=== PATIENT | female | born 1995 | race Caucasian/White ===

== ENCOUNTER → 2018-07-19 | Outpatient (CLI) | payer BC, OTHER | LOC: OD 13:05 | PROVIDERS: ATTEND Obstetrics & Gynecology | DX: O03.9 Complete or unspecified spontaneous abortion without complication (principal) | CPT/HCPCS: 36415; 84702 ==

== ENCOUNTER 2018-09-10 10:32 | Emergency (ER) | payer BC, OTHER ==
[2018-09-10] MEDS ORDERED: METOCLOPRAMIDE HCL INJ/PF 10 MG/2 ML SDV IV ONE (11:14)
[2018-09-10] MEDS ORDERED: NORMAL SALINE 1000 ML 1,000 ML IV ONE (11:14)
[2018-09-10] MEDS ORDERED: DIPHENHYDRAMINE HCL 50 MG/ML VIAL IV ONE (11:14)
--- NOTE | 2018-09-10 11:25 | ER Document Report ---
ED Headache - General Chief Complaint: Headache Stated Complaint: HEADACHE Time Seen by Provider: 09/10/18 11:13 TRAVEL OUTSIDE OF THE [place] IN LAST 30 DAYS: No - HPI Notes: Patient is a 23-year-old female that presents to the emergency department for chief complaint of headache. Patient reports headache that started yesterday. It was gradual in onset and has become more severe. She has photophobia and phonophobia. She took Tylenol yesterday with minimal relief. She denies history of migraines in the past but does state that she gets headaches not infrequently. She has never had a headache that has lasted this long. She is currently at 13 weeks gestational age. She is with a history of 1 delivery and 1 miscarriage. Patient denies any issues with her current . She denies any lower abdominal pain, cramping, vaginal discharge or vaginal bleeding. She does state that she gets frequent urinary tract infections and has been having some dysuria. She states she has been told to see a urologist but has not had a chance to do so yet. She has been on antibiotics for UTI in the last month. She denies any fevers or chills. She has some nausea which is unchanged from her baseline with this . She denies any vomiting or diarrhea. Patient denies any numbness, weakness, vision changes, fever, neck pain and head injury Past Medical History: Negative Past Surgical History: x1, wisdom teeth removal, tonsillectomy Social History: Denies drugs alcohol and tobacco Family History: Reviewed and noncontributory for presenting illness Allergies: Reviewed, see documented allergy list. REVIEW OF SYSTEMS: CONSTITUTIONAL : No fever No chills No diaphoresis No recent illness EENT: No vision changes No congestion No sore throat CARDIOVASCULAR: No chest pain No palpitations RESPIRATORY: No shortness of breath No cough No difficulty breathing GASTROINTESTINAL: No abdominal pain nausea No vomiting No diarrhea GENITOURINARY: dysuria No hematuria No difficulty urinating MUSCULOSKELETAL: No back pain No leg pain No arm pain SKIN: No rashes No lesions LYMPHATIC: No swollen, enlarged glands. NEUROLOGICAL: No lightheadedness headache No weakness No paresthesias PSYCHIATRIC: No anxiety No depression PHYSICAL EXAMINATION: Vital signs reviewed, nursing noted reviewed. GENERAL: Well-appearing, obese and in no acute distress. HEAD: Atraumatic, normocephalic. EYES: Eyes appear normal, extraocular movements intact, sclera anicteric, conjunctiva are normal. ENT: nares patent, oropharynx clear without exudates. Moist mucous membranes. NECK: Normal range of motion, supple without lymphadenopathy LUNGS: Breath sounds clear to auscultation bilaterally and equal. No wheezes rales or rhonchi. HEART: Regular rate and rhythm without murmurs ABDOMEN: Soft, nontender, normoactive bowel sounds. No rebound, guarding, or rigidity. No masses appreciated. EXTREMITIES: Nontender, good range of motion, no pitting or edema. NEUROLOGICAL: No focal neurological deficits. Moves all extremities spontaneously Motor and sensory grossly intact on exam. PSYCH: Normal mood, normal affect. SKIN: Warm, Dry, normal turgor, no rashes or lesions noted on exposed skin - Related Data Allergies/Adverse Reactions: Cephalosporins Allergy (Verified 09/10/18 10:34) Past Medical History - Social History Smoking Status: Never Smoker Family History: Reviewed & Not Pertinent Physical Exam - Vital signs Vitals: Temp Pulse Resp BP Pulse Ox 99.5 F 94 16 132/85 H 97 09/10/18 10:35 09/10/18 10:35 09/10/18 10:35 09/10/18 10:35 09/10/18 10:35 Course - Re-evaluation Re-evalutation: 09/10/18 11:24 Vitals reviewed. Nursing notes reviewed. Patient has no focal neurologic deficits or fever. Meningitis is not suspected. She is currently and we discussed the risks of radiation with CT scan. Her symptoms are not consistent with mass lesion or intracranial hemorrhage and CT will be deferred currently. Patient will be given IV fluids, Reglan and Benadryl for symptomatic management. She does report dysuria so urinalysis will be obtained to evaluate for infection. 09/10/18 12:05 Patient is now refusing IV and requesting oral medications. She was given a large glass of water to drink and given oral Reglan, Benadryl, and Tylenol. 09/10/18 12:34 UA is negative for infection or proteinuria. Patient's blood pressure improved without intervention. She states she is feeling much better. She was counseled on staying well-hydrated and continue to take Tylenol at home as needed for headaches. She was instructed to follow closely with [facility] for monitoring of her blood pressure. She will return for any new or worsening symptoms. Laboratory 09/10/18 11:40 Urine Color YELLOW Urine Appearance SLIGHTLY-CLOUDY Urine pH 5.0 Ur Specific [place] 1.019 Urine Protein NEGATIVE Urine Glucose (UA) NEGATIVE Urine Ketones TRACE H Urine Blood NEGATIVE Urine Nitrite NEGATIVE Urine Bilirubin NEGATIVE Urine Urobilinogen NEGATIVE Ur Leukocyte Esterase NEGATIVE Urine WBC (Auto) 1 Urine RBC (Auto) 5 Squamous Epi Cells Auto 2 Urine Mucus (Auto) FEW Urine Ascorbic Acid NEGATIVE - Vital Signs Vital signs: Temp Pulse Resp BP Pulse Ox 99.2 F 91 16 126/78 H 97 09/10/18 12:45 09/10/18 12:45 09/10/18 11:12 09/10/18 12:45 09/10/18 10:35 - Laboratory Laboratory results interpreted by me: 09/10/18 11:40 Urine Ketones TRACE H Discharge - Discharge Clinical Impression: Elevated blood pressure reading Cephalgia Qualifiers: Headache type: unspecified Headache chronicity pattern: acute headache Intractability: not intractable Qualified Code(s): R51 - Headache Condition: Stable Disposition: HOME, SELF-CARE Instructions: Headache ([facility]) Additional Instructions: Please return to the emergency department if you have any worsening, or concern of your symptoms. Please return to the emergency department if you develop chest pain, difficulty breathing, severe abdominal pain, or ongoing vomiting. Please follow-up with your primary care physician in 2-3 days and any other recommended physicians. If prescribed, take all medications as directed. If you have any questions or concerns do not hesitate to return the emergency department for evaluation. Forms: Elevated Blood Pressure Referrals: NANCY JENKINS MD [Primary Care Provider] - Follow up as needed [facility] [Provider Group] - Follow up in 3-5 days
[2018-09-10] MEDS ORDERED: METOCLOPRAMIDE HCL 10 MG TABLET PO ONE (11:58)
[2018-09-10] MEDS ORDERED: ACETAMINOPHEN 325 MG TABLET PO ONE (11:58)
[2018-09-10] MEDS ORDERED: DIPHENHYDRAMINE HCL 50 MG CAPSULE PO ONE (11:58)
[2018-09-10 12:23] LABS: APPEARANCE,URINE SLIGHTLY-CLOUDY; BILIRUBIN,URINE NEGATIVE (NEGATIVE); COLOR,URINE YELLOW; GLUCOSE, URINE NEGATIVE (NEGATIVE); KETONES,URINE TRACE mg/dL (NEGATIVE); LEUKOCYTE ESTERASE,URINE NEGATIVE (NEGATIVE); NITRITE,URINE NEGATIVE (NEGATIVE); PROTEIN,URINE NEGATIVE (NEGATIVE); URINE SPECIFIC GRAVITY 1.019; UROBILINOGEN,URINE NEGATIVE mg/dL (<2.0)
[2018-09-10 13:04] VITALS: BP 126/78
== END 2018-09-10 12:51 | disposition home or self-care (01) ==
LOC: ER 10:32
DX: O26.891 Other specified pregnancy related conditions, first trimester (principal); R51 Headache; R03.0 Elevated blood-pressure reading, without diagnosis of hypertension; H53.149 Visual discomfort, unspecified; R30.0 Dysuria; R11.0 Nausea; Z3A.13 13 weeks gestation of pregnancy; Z87.440 Personal history of urinary (tract) infections; Z86.69 Personal history of other diseases of the nervous system and sense organs; Z88.1 Allergy status to other antibiotic agents
CPT/HCPCS: 81001; 87086; 99284

== ENCOUNTER 2018-12-15 13:35 | Emergency (ER) | payer BC, OTHER ==
[2018-12-15 13:42] VITALS: BP 126/75
[2018-12-15] MEDS ORDERED: LIDOCAINE 5% (700 MG) TRANSDERMAL ADH..PATCH TP ONE (14:16)
[2018-12-15] MEDS ORDERED: ACETAMINOPHEN 325 MG TABLET PO ONE (14:16)
--- NOTE | 2018-12-15 14:19 | ER Document Report ---
HPI - HPI Time Seen by Provider: 12/15/18 14:10 Pain Level: 4 Notes: Patient is an otherwise healthy 23-year-old female who is 32 weeks presenting with chief complaint of tailbone pain. Patient denies any trauma to this area. She denies any abdominal pain or cramping. She further denies any dysuria, abnormal vaginal discharge or vaginal bleeding. - REPRODUCTIVE Reproductive: DENIES: : Past Medical History - General Information source: Patient - Social History Smoking Status: Never Smoker Frequency of alcohol use: None Drug Abuse: None Family History: Reviewed & Not Pertinent Patient has suicidal ideation: No Patient has homicidal ideation: No - Medical History Medical History: Negative Endocrine Medical History: Comment Only: Hx Diabetes Mellitus Type 2 - gestational diabetes Renal/ Medical History: Denies: Hx Peritoneal Dialysis Surgical Hx: Negative - Immunizations Immunizations up to date: Yes Vertical Provider Document - CONSTITUTIONAL Notes: PHYSICAL EXAMINATION: GENERAL: Well-appearing, well-nourished and in no acute distress. HEAD: Atraumatic, normocephalic. EYES: Pupils equal round extraocular movements intact, conjunctiva are normal. ENT: Nares patent NECK: Normal range of motion LUNGS: No respiratory distress Musculoskeletal: Normal range of motion, tenderness to palpation over coccyx. No erythema, ecchymosis, induration or evidence of infection. NEUROLOGICAL: Normal speech, normal gait. PSYCH: Normal mood, normal affect. SKIN: Warm, Dry, normal turgor, no rashes or lesions noted. - INFECTION CONTROL TRAVEL OUTSIDE OF THE [place] IN LAST 30 DAYS: No Course - Re-evaluation Re-evalutation: Patient encouraged to take Tylenol and use lidocaine patches. She has a follow- up with her [employer]IE[employer] already scheduled for 4 days from now. Encouraged her to keep this appointment. Encouraged to return to the hospital if she develops abdominal pain, vaginal bleeding or any other symptom that is concerning to her. - Vital Signs Vital signs: Temp Pulse Resp BP Pulse Ox 98.2 F 106 H 20 126/75 H 97 12/15/18 13:40 12/15/18 13:40 12/15/18 13:40 12/15/18 13:40 12/15/18 13:40 Discharge - Discharge Clinical Impression: Pain, coccyx Condition: Stable Disposition: HOME, SELF-CARE Instructions: Low Back Pain ([facility]) Additional Instructions: As discussed please take Tylenol every 4 hours for the pain. Use the Lidoderm patches as directed apply 1 to the area for 12 hours then off for 12 hours. Please follow-up with your primary care provider or your [employer]GRAM[employer] CHIEF as we discussed. Return to the emergency department for any new or worsening symptoms. Please see labor and delivery if you develop abdominal pain, cramping or any abnormal normal vaginal bleeding. Prescriptions: Lidocaine [Lidoderm 5% (700 mg) Transdermal Patch] 1 patch TP DAILY #30 [facility] Referrals: NANCY JENKINS MD [ACTIVE STAFF] - Follow up as needed
== END 2018-12-15 14:23 | disposition home or self-care (01) ==
LOC: ER 13:35
DX: O26.93 Pregnancy related conditions, unspecified, third trimester (principal); M53.3 Sacrococcygeal disorders, not elsewhere classified; Z3A.32 32 weeks gestation of pregnancy
CPT/HCPCS: 99283

== ENCOUNTER 2019-11-09 12:35 | Emergency (ER) | payer BC, OTHER ==
[2019-11-09] MEDS ORDERED: ACETAMINOPHEN 325 MG TABLET PO ONE (14:03)
[2019-11-09] MEDS ORDERED: ONDANSETRON 4 MG TAB.RAPDIS PO ONE (14:03)
--- NOTE | 2019-11-09 14:03 | ER Document Report ---
ED Medical Screen (RME) - General Chief Complaint: Headache >24 hrs old Stated Complaint: HEADACHE, HANDS AND FEET SWELLING Time Seen by Provider: 11/09/19 14:00 Mode of Arrival: Ambulatory Information source: Patient Notes: 24-year-old female presented to ED for complaint of headache and nausea x3 days. She states she took Tylenol this morning at 630. She does have a history of headaches. She has a history of gestational diabetes gestational hypertension with preeclampsia. She also has a history of depression and anxiety. She is 16 weeks 4 para 2. Her HAM PUMPER is in [place]. She states she rarely drinks patient does not have a truck driver with her. I have greeted and performed a rapid initial assessment of this patient. A comprehensive ED assessment and evaluation of the patient, analysis of test results and completion of medical decision making process will be conducted by an additional ED providers. TRAVEL OUTSIDE OF THE [place] IN LAST 30 DAYS: No - Related Data Allergies/Adverse Reactions: No Known Allergies Allergy (Unverified 11/09/19 13:52) Home Medications: lexapro, vistaril Past Medical History - Social History Chew tobacco use (# tins/day): No Frequency of alcohol use: Rare Drug Abuse: None - Past Medical History Cardiac Medical History: Denies: Hx Hypercholesterolemia - gestational htn Endocrine Medical History: Denies: Hx Diabetes Mellitus Type 2 - gestational diabetes Renal/ Medical History: Denies: Hx Peritoneal Dialysis Psychiatric Medical History: Reports: Hx Depression Past Surgical History: Reports: Hx Section - x2 - Immunizations Immunizations up to date: Yes Physical Exam - Vital signs Vitals: Temp Pulse Resp BP Pulse Ox 99.5 F 119 H 20 136/89 H 96 11/09/19 13:19 11/09/19 13:19 11/09/19 13:19 11/09/19 13:19 11/09/19 13:19 Course - Vital Signs Vital signs: Temp Pulse Resp BP Pulse Ox 99.5 F 119 H 20 124/82 96 11/09/19 13:19 11/09/19 13:19 11/09/19 13:19 11/09/19 13:50 11/09/19 13:19
[2019-11-09 14:36] LABS: ABSOLUTE EOSINOPHILS # (AUTO) 0.1 10^3/uL (0.0-0.6); ABSOLUTE LYMPHOCYTES (AUTO) 2.1 10^3/uL (0.5-4.7); ABSOLUTE MONOCYTES (AUTO) 0.7 10^3/uL (0.1-1.4); ABSOLUTE NEUT (AUTO) 7.4 10^3/uL (1.7-8.2); APPEARANCE,URINE CLOUDY; BASOPHILS % (AUTO) 0.3 % (0-2); BILIRUBIN,URINE NEGATIVE (NEGATIVE); EOSINOPHILS % (AUTO) 0.7 % (0-6); GLUCOSE, URINE NEGATIVE (NEGATIVE); HEMATOCRIT 35.2 % (36.0-47.0); HEMOGLOBIN 12.6 g/dL (12.0-15.5); KETONES,URINE 20 mg/dL (NEGATIVE); LYMPHOCYTES % (AUTO) 20.1 % (13-45); MEAN CORPUSCULAR HEMOGLOBIN 28.7 pg (27.0-33.4); MEAN CORPUSCULAR HGB CONC 35.8 g/dL (32.0-36.0); MEAN CORPUSCULAR VOLUME 80 fl (80-97); MONOCYTES % (AUTO) 7.1 % (3-13); PLATELET COUNT 281 10^3/uL (150-450); PROTEIN,URINE 100 mg/dL (NEGATIVE); RED BLOOD COUNT 4.39 10^6/uL (3.72-5.28); RED CELL DISTRIBUTION WIDTH 16.6 % (11.5-14.0); SEGMENTED NEUTROPHILS % (AUTO) 71.8 % (42-78); TOTAL CELLS COUNTED % (AUTO) 100 %; URINE SPECIFIC GRAVITY 1.026; WHITE BLOOD COUNT 10.2 10^3/uL (4.0-10.5)
[2019-11-09 14:38] LABS: COLOR,URINE DARK YELLOW
[2019-11-09 14:41] LABS: BACTERIA,URINE 4+ /HPF
--- NOTE | 2019-11-09 14:43 | ER Document Report ---
ED General - General Chief Complaint: Headache >24 hrs old Stated Complaint: HEADACHE, HANDS AND FEET SWELLING Time Seen by Provider: 11/09/19 14:00 Mode of Arrival: Ambulatory Information source: Patient Notes: 24-year-old female who lives at [place] with her and also 22-month and 8-month-old children. Patient is now 16 weeks gravid miscarriage in March 2018. She has a history of preeclampsia hypertension on her last child 8 months ago. She had a at that time. She has had a diffuse headache for the last 3 days with positive photophobia wearing sunglasses at this time in triage and waiting room. I examined this patient in the triage room #3 with Vianney FRANCO patient denies any sore throat rhinorrhea nuchal rigidity cough cold symptoms. She denies any travel in fact she has to take care of her 2 children at her home and denies any outside activity outside the home for several weeks TRAVEL OUTSIDE OF THE [place] IN LAST 30 DAYS: No - HPI Onset: Yesterday Onset/Duration: Sudden Quality of pain: No pain Severity: Mild Pain Level: 1 Associated symptoms: Nausea, Weakness Exacerbated by: Movement, Other - light Relieved by: Denies Similar symptoms previously: Yes Recently seen / treated by doctor: No - Related Data Allergies/Adverse Reactions: No Known Allergies Allergy (Unverified 11/09/19 13:52) Home Medications: lexapro, vistaril Past Medical History - General Information source: Patient - Social History Smoking Status: Never Smoker Cigarette use (# per day): No Chew tobacco use (# tins/day): No Smoking Education Provided: No Frequency of alcohol use: Rare Drug Abuse: None Family History: Reviewed & Not Pertinent Patient has suicidal ideation: No Patient has homicidal ideation: No - Past Medical History Cardiac Medical History: Denies: Hx Hypercholesterolemia - gestational htn Endocrine Medical History: Denies: Hx Diabetes Mellitus Type 2 - gestational diabetes Renal/ Medical History: Denies: Hx Peritoneal Dialysis Psychiatric Medical History: Reports: Hx Depression Past Surgical History: Reports: Hx Section - x2 - Immunizations Immunizations up to date: Yes Review of Systems - Review of Systems Constitutional: See HPI, Malaise EENT: No symptoms reported Cardiovascular: No symptoms reported Respiratory: No symptoms reported Gastrointestinal: No symptoms reported Genitourinary: No symptoms reported Female Genitourinary: No symptoms reported Musculoskeletal: No symptoms reported Skin: No symptoms reported Hematologic/Lymphatic: No symptoms reported Neurological/Psychological: See HPI, Headaches Physical Exam - Vital signs Vitals: Temp Pulse Resp BP Pulse Ox 99.5 F 119 H 20 136/89 H 96 11/09/19 13:19 11/09/19 13:19 11/09/19 13:19 11/09/19 13:19 11/09/19 13:19 Interpretation: Normal - HEENT Head: Normocephalic Eyes: Normal Conjunctiva: Normal Cornea: Normal Extraocular movements intact: Yes Eyelashes: Normal Pupils: PERRL Mucous membranes: Normal Pharynx: Normal Neck: Normal - Respiratory Respiratory status: No respiratory distress Chest status: Nontender Breath sounds: Normal Chest palpation: Normal - Cardiovascular Rhythm: Tachycardia Heart sounds: Normal auscultation Murmur: No Friction rub: No Sim's crunch: No - Abdominal Inspection: Normal Distension: No distension Bowel sounds: Normal Tenderness: Nontender Organomegaly: No organomegaly - Back Back: Normal - Extremities General upper extremity: Normal inspection General lower extremity: Normal inspection - Neurological Neuro grossly intact: Yes Cognition: Normal Orientation: AAOx4 Edgar Coma Scale Eye Opening: Spontaneous Edgar Coma Scale Verbal: Oriented Speech: Normal Cranial nerves: Normal Cerebellar coordination: Normal Motor strength normal: LUE, RUE, LLE, RLE - Psychological Associated symptoms: Normal affect - Skin Skin Temperature: Warm Skin Moisture: Dry Course - Vital Signs Vital signs: Temp Pulse Resp BP Pulse Ox 99.1 F 91 22 H 126/78 H 98 11/09/19 20:20 11/09/19 20:20 11/09/19 20:20 11/09/19 20:20 11/09/19 20:20 - Laboratory Result Diagrams: 11/09/19 14:05 11/09/19 14:05 Laboratory results interpreted by me: 11/09/19 11/09/19 11/09/19 14:05 14:05 14:05 Hct 35.2 L RDW 16.6 H Sodium 135.9 L BUN 4 L Creatinine 0.35 L Urine Protein 100 H Urine Ketones 20 H Urine Urobilinogen 2.0 H Leukocyte Esterase Rfl LARGE H Critical Care Note - Critical Care Note Total time excluding time spent on procedures (mins): 90 Discharge - Discharge Clinical Impression: Tachycardia Fever Qualifiers: Fever type: unspecified Qualified Code(s): R50.9 - Fever, unspecified Headache Qualifiers: Headache type: unspecified Headache chronicity pattern: acute headache Intractability: not intractable Qualified Code(s): R51 - Headache UTI (urinary tract infection) Qualifiers: Urinary tract infection type: site unspecified Hematuria presence: without hematuria Qualified Code(s): N39.0 - Urinary tract infection, site not specified Condition: Good Disposition: HOME, SELF-CARE Additional Instructions: Follow-up with personal doctor return to ER as needed take medicines as directed encourage fluids Prescriptions: Nitrofurantoin Monohyd/M-Cryst [Macrobid 100 mg Capsule] 100 mg PO BID #14 cap
[2019-11-09 15:01] LABS: ALBUMIN 3.9 g/dL (3.5-5.0); ALKALINE PHOSPHATASE 52 U/L (38-126); ANION GAP 12 (5-19); ASPARTATE AMINO TRANSFERASE 17 U/L (14-36); BILIRUBIN,DIRECT 0.3 mg/dL (0.0-0.4); BILIRUBIN,TOTAL 0.4 mg/dL (0.2-1.3); BLOOD UREA NITROGEN 4 mg/dL (7-20); CALCIUM 9.2 mg/dL (8.4-10.2); CARBON DIOXIDE 22 mmol/L (22-30); CHLORIDE 102 mmol/L (98-107); GLUCOSE 99 mg/dL (75-110); POTASSIUM 4.2 mmol/L (3.6-5.0); TOTAL PROTEIN 6.8 g/dL (6.3-8.2)
[2019-11-09 17:13] LABS: A TYPE INFLUENZA AG NEGATIVE (NEGATIVE); B INFLUENZA AG NEGATIVE (NEGATIVE)
[2019-11-09] MEDS ORDERED: CEFTRIAXONE INJ 1000 MG VIAL IM ONE (20:40)
[2019-11-09] MEDS ORDERED: GENTAMICIN SULFATE INJ 80 MG/2 ML VIAL IM ONE (20:41)
[2019-11-09] MEDS ORDERED: HYDROCODONE/ACETAMINOPHEN 5-325 MG (6 TAB/ER DISP) PO PRN (20:41)
[2019-11-09] MEDS ORDERED: ONDANSETRON ODT 4 MG TAB (6 TAB/ER DISP) PO PRN (20:41)
[2019-11-09] MEDS ORDERED: LIDOCAINE 1% INJ-PF (10 MG/ML) 30 ML SDV ONE (21:25)
[2019-11-09 22:40] VITALS: BP 149/91
== END 2019-11-09 22:20 | disposition home or self-care (01) ==
LOC: ER 12:35
DX: O23.42 Unspecified infection of urinary tract in pregnancy, second trimester (principal); R53.1 Weakness; R51 Headache; R00.0 Tachycardia, unspecified; M79.89 Other specified soft tissue disorders; Z3A.16 16 weeks gestation of pregnancy
CPT/HCPCS: 99285; 96372; 36415; 85025; 80053; 81001; 87804; S0119; J3490; J0696